=== PATIENT | female | born 2000 | race American Indian/Alaskan Native ===

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

== ENCOUNTER 2020-10-17 11:57 | Emergency (ER) | payer MEDICAID ==
[2020-10-17 12:05] VITALS: BP 148/95
--- NOTE | 2020-10-17 12:17 | Emergency Department Report ---
ED General Adult HPI - General Chief complaint: Extremity Injury, Lower Stated complaint: RT KNEE PAIN Time Seen by Provider: 10/17/20 12:13 Source: patient Mode of arrival: Ambulatory Limitations: No Limitations - History of Present Illness Initial comments: 20-year-old -[place] female patient presents with complaints of right knee pain x1 week. She states the pain occur when she was sitting down to get onto a ride at [employer] last week. She also reports history of a fracture in the same knee in 2019. She denies any numbness/tingling/weakness in her leg, difficulty moving her knee, swelling, redness, or fever/chills/sweats. She rates her current pain as a 7/10 in severity. She denies trying any OTC medication for pain. Pain worsens with ambulation. Patient reports clicking of the knee - Related Data Previous Rx's Medication Instructions Recorded Last Taken Type Azithromycin [Zithromax] 500 mg PO QDAY #3 tablet 02/09/14 Unknown Rx Bromfed Dm 5 ml PO TID #120 ml 02/09/14 Unknown Rx ALBUTEROL Inhaler(NF) [VENTOLIN 1 - 2 puff IH DAILY #1 inha 01/03/19 Unknown Rx Inhaler(NF)] ALBUTEROL NEB's [Proventil 0.083% 2.5 mg IH TID PRN #25 vial 07/25/19 Unknown Rx NEBS] Azithromycin [Zithromax Z-MARY] 250 mg PO DAILY #6 tab 07/25/19 Unknown Rx Benzonatate [Tessalon Perles] 100 mg PO Q8HR PRN #30 capsule 07/25/19 Unknown Rx Ibuprofen [Motrin 800 MG tab] 800 mg PO Q8HR PRN #30 tablet 07/25/19 Unknown Rx Nebulizer Accessories [Sootheneb 1 each MC PRN PRN #1 each 07/25/19 Unknown Rx [id number] Adult Mask] Nebulizer [Aeroneb Go Nebulizer] 1 each MC PRN PRN #1 each 07/25/19 Unknown Rx predniSONE [Deltasone] 40 mg PO QDAY 5 Days #10 tab 07/25/19 Unknown Rx Albuterol Mdi (or & Nicu Only) 2 puff IH QID PRN #1 inhalation 12/28/19 Unknown Rx [ProAir HFA Inhaler] Fluticasone [Flonase] 1 spray NS QDAY #1 bottle 12/28/19 Unknown Rx Loratadine (Nf) [Claritin (Nf)] 10 mg PO DAILY #30 tablet 12/28/19 Unknown Rx guaiFENesin/CODEINE [Robitussin AC] 5 ml PO TID #60 ml 12/28/19 Unknown Rx Naproxen [EC-Naprosyn] 500 mg PO BID PRN 7 Days #14 10/17/20 Unknown Rx tablet. Allergies Allergy/AdvReac Type Severity Reaction Status Date / Time No Known Allergies Allergy Verified 01/03/19 08:54 ED Review of Systems ROS: Stated complaint: RT KNEE PAIN Other details as noted in HPI Constitutional: denies: chills, fever, malaise Genitourinary: denies: dysuria, discharge Musculoskeletal: arthralgia. denies: joint swelling Skin: denies: change in color Neurological: denies: numbness, paresthesias ED Past Medical Hx - Past Medical History Hx Asthma: Yes - Surgical History Past Surgical History?: No - Social History Smoking Status: Never Smoker - Medications Home Medications: Home Medications Medication Instructions Recorded Confirmed Last Taken Type Azithromycin [Zithromax] 500 mg PO QDAY #3 tablet 02/09/14 Unknown Rx Bromfed Dm 5 ml PO TID #120 ml 02/09/14 Unknown Rx ALBUTEROL Inhaler(NF) [VENTOLIN 1 - 2 puff IH DAILY #1 inha 01/03/19 Unknown Rx Inhaler(NF)] ALBUTEROL NEB's [Proventil 0.083% 2.5 mg IH TID PRN #25 vial 07/25/19 Unknown Rx NEBS] Azithromycin [Zithromax Z-MARY] 250 mg PO DAILY #6 tab 07/25/19 Unknown Rx Benzonatate [Tessalon Perles] 100 mg PO Q8HR PRN #30 capsule 07/25/19 Unknown Rx Ibuprofen [Motrin 800 MG tab] 800 mg PO Q8HR PRN #30 tablet 07/25/19 Unknown Rx Nebulizer Accessories [Sootheneb 1 each MC PRN PRN #1 each 07/25/19 Unknown Rx [id number] Adult Mask] Nebulizer [Aeroneb Go Nebulizer] 1 each MC PRN PRN #1 each 07/25/19 Unknown Rx predniSONE [Deltasone] 40 mg PO QDAY 5 Days #10 tab 07/25/19 Unknown Rx Albuterol Mdi (or & Nicu Only) 2 puff IH QID PRN #1 inhalation 12/28/19 Unknown Rx [ProAir HFA Inhaler] Fluticasone [Flonase] 1 spray NS QDAY #1 bottle 12/28/19 Unknown Rx Loratadine (Nf) [Claritin (Nf)] 10 mg PO DAILY #30 tablet 12/28/19 Unknown Rx guaiFENesin/CODEINE [Robitussin AC] 5 ml PO TID #60 ml 12/28/19 Unknown Rx Naproxen [EC-Naprosyn] 500 mg PO BID PRN 7 Days #14 10/17/20 Unknown Rx tablet. ED Physical Exam - General Limitations: No Limitations General appearance: alert, in no apparent distress, obese - Head Head exam: Present: atraumatic, normocephalic - Neck Neck exam: Present: normal inspection - Respiratory Respiratory exam: Absent: respiratory distress - Cardiovascular Cardiovascular Exam: Present: regular rate - Expanded Lower Extremity Exam Right Knee exam: Present: full ROM, tenderness (Anterior and midline). Absent: swelling, abrasion, laceration, ecchymosis, deformity, crepidus Lower Leg exam: Present: normal inspection, full ROM Ankle exam: Present: normal inspection, full ROM Neuro vascular tendon exam: Absent: no vascular compromise - Back Exam Back exam: Present: full ROM - Neurological Exam Neurological exam: Present: alert, oriented X3 - Psychiatric Psychiatric exam: Present: normal affect, normal mood - Skin Skin exam: Present: warm, dry, intact, normal color. Absent: rash, erythema ED Course Vital Signs 10/17/20 12:03 Temperature 97.9 F Pulse Rate 94 H Respiratory 16 Rate Blood Pressure 148/95 O2 Sat by Pulse 98 Oximetry ED Medical Decision Making - Radiology Data Radiology results: report reviewed Procedure(s): XR knee 3V RT Accession Number(s): [id number] cc: ALFONZO SHEARER Fluoro Time In Minutes: EXAMINATION: Right knee radiograph, 3 views, 10/17/2020 CLINICAL INFORMATION: Right knee pain and trauma. Twisting injury. COMPARISON: None. FINDINGS: There is no evidence of acute fracture or subluxation. No focal soft tissue swelling is visualized. No significant bony degenerative changes are noted. IMPRESSION: 1. No evidence of acute bony abnormality of the right knee. - Medical Decision Making 20-year-old -[place] female patient presents with complaints of right knee pain x1 week. She states the pain occur when she was sitting down to get onto a ride at [employer] last week. She also reports history of a fracture in the same knee in 2019. She denies any numbness/tingling/weakness in her leg, difficulty moving her knee, swelling, redness, or fever/chills/sweats. She rates her current pain as a 7/10 in severity. She denies trying any OTC medication for pain. Pain worsens with ambulation. Patient reports clicking of the knee No abnormalities noted on x-ray of knee. Patient placed in Alen wrap and provided with crutches. Will treat with NSAIDs and icing and recommend follow- up with podiatrist orthopedic. Strict return precautions were discussed in detail with patient who verbalizes understanding peer Critical care attestation.: If time is entered above; I have spent that time in minutes in the direct care of this critically ill patient, excluding procedure time. ED Disposition Clinical Impression: Right knee sprain Qualifiers: Encounter type: initial encounter Involved ligament of knee: other ligament Qualified Code(s): S83.8X1A - Sprain of other specified parts of right knee, initial encounter Disposition: TO HOME OR SELFCARE Is pt being admited?: No Condition: Stable Instructions: Knee Sprain, Adult Prescriptions: Naproxen [EC-Naprosyn] 500 mg PO BID PRN 7 Days #14 tablet.dr ORDOÑEZ Reason: pain Referrals: ANGIE INGRAM MD [Staff Physician] - 3-5 Days
--- NOTE | 2020-10-17 12:49 | XRay Report ---
EXAMINATION: Right knee radiograph, 3 views, 10/17/2020 CLINICAL INFORMATION: Right knee pain and trauma. Twisting injury. COMPARISON: None. FINDINGS: There is no evidence of acute fracture or subluxation. No focal soft tissue swelling is vis ualized. No significant bony degenerative changes are noted. IMPRESSION: 1. No evidence of acute bony abnormality of the right knee. Signer Name: Marlen Cornelius MD Signed: 10/17/2020 12:45 PM Workstation Name: [id number]
[2020-10-17] MEDS ORDERED: IBUPROFEN 800 MG TAB PO ONE (13:34)
== END 2020-10-17 13:57 | disposition home or self-care (01) ==
LOC: ED 11:57
DX: S83.91XA Sprain of unspecified site of right knee, initial encounter (principal); J45.909 Unspecified asthma, uncomplicated; Z79.2 Long term (current) use of antibiotics; Z79.899 Other long term (current) drug therapy; X58.XXXA Exposure to other specified factors, initial encounter; Y93.89 Activity, other specified; Y92.89 Other specified places as the place of occurrence of the external cause; Y99.8 Other external cause status
CPT/HCPCS: 99283

== ENCOUNTER 2020-11-03 20:29 | Emergency (ER) | payer MEDICAID ==
--- NOTE | 2020-11-03 20:46 | Emergency Department Report ---
ED Asthma HPI - General Stated Complaint: YONNY PUI?: No Time Seen by Provider: 11/03/20 20:32 Source: patient - History of Present Illness Complaint: shortness of breath, wheezing -: Gradual Asthma History: childhood onset Severity: mild, moderate Context: none known, ran out of meds, other Associated Symptoms: productive cough, other - Related Data Previous Rx's Medication Instructions Recorded Last Taken Type Azithromycin [Zithromax] 500 mg PO QDAY #3 tablet 02/09/14 Unknown Rx Bromfed Dm 5 ml PO TID #120 ml 02/09/14 Unknown Rx ALBUTEROL Inhaler(NF) [VENTOLIN 1 - 2 puff IH DAILY #1 inha 01/03/19 Unknown Rx Inhaler(NF)] ALBUTEROL NEB's [Proventil 0.083% 2.5 mg IH TID PRN #25 vial 07/25/19 Unknown Rx NEBS] Azithromycin [Zithromax Z-MARY] 250 mg PO DAILY #6 tab 07/25/19 Unknown Rx Benzonatate [Tessalon Perles] 100 mg PO Q8HR PRN #30 capsule 07/25/19 Unknown Rx Ibuprofen [Motrin 800 MG tab] 800 mg PO Q8HR PRN #30 tablet 07/25/19 Unknown Rx Nebulizer Accessories [Sootheneb 1 each MC PRN PRN #1 each 07/25/19 Unknown Rx [id number] Adult Mask] Nebulizer [Aeroneb Go Nebulizer] 1 each MC PRN PRN #1 each 07/25/19 Unknown Rx predniSONE [Deltasone] 40 mg PO QDAY 5 Days #10 tab 07/25/19 Unknown Rx Albuterol Mdi (or & Nicu Only) 2 puff IH QID PRN #1 inhalation 12/28/19 Unknown Rx [ProAir HFA Inhaler] Fluticasone [Flonase] 1 spray NS QDAY #1 bottle 12/28/19 Unknown Rx Loratadine (Nf) [Claritin (Nf)] 10 mg PO DAILY #30 tablet 12/28/19 Unknown Rx guaiFENesin/CODEINE [Robitussin AC] 5 ml PO TID #60 ml 12/28/19 Unknown Rx Naproxen [EC-Naprosyn] 500 mg PO BID PRN 7 Days #14 10/17/20 Unknown Rx tablet.dr Albuterol Mdi (or & Nicu Only) 1 puff IH Q4-6H PRN #1 inha 11/03/20 Unknown Rx [ProAir HFA Inhaler] Benzonatate [Tessalon Perles] 100 mg PO Q8HR #20 capsule 11/03/20 Unknown Rx Fluticasone [Flonase] 1 spray NS QDAY #1 bottle 11/03/20 Unknown Rx predniSONE [Deltasone] 20 mg PO QDAY #5 tab 11/03/20 Unknown Rx Allergies Allergy/AdvReac Type Severity Reaction Status Date / Time No Known Allergies Allergy Verified 01/03/19 08:54 ED Review of Systems ROS: Stated complaint: YONNY Other details as noted in HPI Comment: All other systems reviewed and negative ED Past Medical Hx - Past Medical History Hx Asthma: Yes - Social History Smoking Status: Never Smoker - Medications Home Medications: Home Medications Medication Instructions Recorded Confirmed Last Taken Type Azithromycin [Zithromax] 500 mg PO QDAY #3 tablet 02/09/14 Unknown Rx Bromfed Dm 5 ml PO TID #120 ml 02/09/14 Unknown Rx ALBUTEROL Inhaler(NF) [VENTOLIN 1 - 2 puff IH DAILY #1 inha 01/03/19 Unknown Rx Inhaler(NF)] ALBUTEROL NEB's [Proventil 0.083% 2.5 mg IH TID PRN #25 vial 07/25/19 Unknown Rx NEBS] Azithromycin [Zithromax Z-MARY] 250 mg PO DAILY #6 tab 07/25/19 Unknown Rx Benzonatate [Tessalon Perles] 100 mg PO Q8HR PRN #30 capsule 07/25/19 Unknown Rx Ibuprofen [Motrin 800 MG tab] 800 mg PO Q8HR PRN #30 tablet 07/25/19 Unknown Rx Nebulizer Accessories [Sootheneb 1 each MC PRN PRN #1 each 07/25/19 Unknown Rx [id number] Adult Mask] Nebulizer [Aeroneb Go Nebulizer] 1 each MC PRN PRN #1 each 07/25/19 Unknown Rx predniSONE [Deltasone] 40 mg PO QDAY 5 Days #10 tab 07/25/19 Unknown Rx Albuterol Mdi (or & Nicu Only) 2 puff IH QID PRN #1 inhalation 12/28/19 Unknown Rx [ProAir HFA Inhaler] Fluticasone [Flonase] 1 spray NS QDAY #1 bottle 12/28/19 Unknown Rx Loratadine (Nf) [Claritin (Nf)] 10 mg PO DAILY #30 tablet 12/28/19 Unknown Rx guaiFENesin/CODEINE [Robitussin AC] 5 ml PO TID #60 ml 12/28/19 Unknown Rx Naproxen [EC-Naprosyn] 500 mg PO BID PRN 7 Days #14 10/17/20 Unknown Rx tablet. Albuterol i (or & Nicu Only) 1 puff IH Q4-6H PRN #1 inha 11/03/20 Unknown Rx [ProAir HFA Inhaler] Benzonatate [Tessalon Perles] 100 mg PO Q8HR #20 capsule 11/03/20 Unknown Rx Fluticasone [Flonase] 1 spray NS QDAY #1 bottle 11/03/20 Unknown Rx predniSONE [Deltasone] 20 mg PO QDAY #5 tab 11/03/20 Unknown Rx ED Physical Exam - General General appearance: alert, in no apparent distress - Head Head exam: Present: atraumatic, normocephalic - Eye Eye exam: Present: normal appearance, PERRL Pupils: Present: normal accommodation - ENT ENT exam: Present: mucous membranes moist, TM's normal bilaterally, other (nasal congestion with clear discharge) - Neck Neck exam: Present: normal inspection, full ROM - Respiratory Respiratory exam: Present: normal lung sounds bilaterally, rhonchi. Absent: respiratory distress, wheezes, accessory muscle use, decreased breath sounds - Cardiovascular Cardiovascular Exam: Present: regular rate, normal rhythm. Absent: tachycardia, systolic murmur, diastolic murmur, rubs, gallop - GI/Abdominal GI/Abdominal exam: Present: soft, normal bowel sounds. Absent: tenderness, guarding, rebound, hyperactive bowel sounds, hypoactive bowel sounds, organomegaly - Extremities Exam Extremities exam: Present: normal inspection, normal capillary refill - Back Exam Back exam: Present: normal inspection. Absent: CVA tenderness (R), CVA tenderness (L) - Neurological Exam Neurological exam: Present: alert, oriented X3, CN II-XII intact - Psychiatric Psychiatric exam: Present: normal affect, normal mood - Skin Skin exam: Present: warm, dry, intact, normal color. Absent: rash ED Course Vital Signs 11/03/20 11/04/20 22:22 00:05 Temperature 97.0 F L Pulse Rate 78 Respiratory 16 20 Rate Blood Pressure 123/79 O2 Sat by Pulse 98 Oximetry ED Medical Decision Making - Radiology Data Radiology results: report reviewed Referring Physician:CORTNEY CHAPatient Name:GIAN BUTLERPatient ID:[id number] of :[id number]:FemaleAccession:[id number] Date:[id number] Status:Finalized Findings [facility] [address] [place] [address] XRay Report Signed Patient: GIAN BUTLER MR#: [id number] : 2000 Acct:[id number] Age/Sex: 20 / F ADM Date: 11/03/20 Loc: ED Attending Dr: Ordering Physician: JULY HENRY Date of Service: 11/03/20 Procedure(s): XR chest routine 2V Accession Number(s): [id number] cc: JULY HENRY Fluoro Time In Minutes: CHEST 2 VIEWS INDICATION / CLINICAL INFORMATION: Shortness of breath, asthma, wheezing. COMPARISON: 12/28/2019. FINDINGS: SUPPORT DEVICES: None. HEART / MEDIASTINUM: Stable. LUNGS / PLEURA: No significant pulmonary or pleural abnormality. No pneumothorax. ADDITIONAL FINDINGS: No significant additional findings. IMPRESSION: No acute cardiopulmonary abnormality. Signer Name: Brittany Cedillo MD Signed: 11/03/2020 9:37 PM Workstation Name: [id number] Transcribed By: SS Dictated By: BRITTANY CEDILLO Electronically Authenticated By: BRITTANY CEDILLO Signed Date/Time: 11/03/202136 DD/ 36 TD/TT - Medical Decision Making This patient presents with acute cough, most consistent with hyperreactive airway disease. Differential diagnosis includes asthma, bronchitis, hyperreactive airway disease, viral syndrome. Presentation not consistent with acute bacterial pneumonia, influenza, asthma, transient airway hyperresponsiveness. Presentation not consistent with chronic causes of cough (including GERD, asthma, postnasal discharge, medication side effect, CHF, lung cancer or mass). Plan: supportive care, reassess Critical care attestation.: If time is entered above; I have spent that time in minutes in the direct care of this critically ill patient, excluding procedure time. ED Disposition Clinical Impression: Cough, Nasal congestion Disposition: DC-01 TO HOME OR SELFCARE Is pt being admited?: No Does the pt Need Aspirin: No Condition: Stable Instructions: Cool Mist Vaporizer, Cough, Adult, Allergic Rhinitis, Adult Prescriptions: predniSONE [Deltasone] 20 mg PO QDAY #5 tab Fluticasone [Flonase] 1 spray NS QDAY #1 bottle Albuterol Mdi (or & Nicu Only) [ProAir HFA Inhaler] 1 puff IH Q4-6H PRN #1 inha PRN Reason: Cough Benzonatate [Tessalon Perles] 100 mg PO Q8HR #20 capsule Referrals: [facility] [Provider Group] - 3-5 Days
--- NOTE | 2020-11-03 21:42 | XRay Report ---
CHEST 2 VIEWS INDICATION / CLINICAL INFORMATION: Shortness of breath, asthma, wheezing. COMPARISON: 12/28/2019. FINDINGS: SUPPORT DEVICES: None. HEART / MEDIASTINUM: Stable. LUNGS / PLEURA: No significant pulmonary or pleural abnormality. No pneumothorax. ADDITIONAL FINDINGS: No significant additional findings. IMPRESSION: No acute cardiopulmonary abnormality. Signer Name: Jay Cedillo MD Signed: 11/03/2020 9:37 PM Workstation Name: [id number]
[2020-11-04 00:38] VITALS: BP 123/79
== END 2020-11-04 00:10 | disposition home or self-care (01) ==
LOC: ED 20:29
DX: R09.81 Nasal congestion (principal); R05 Cough; J45.909 Unspecified asthma, uncomplicated; Z79.899 Other long term (current) drug therapy
CPT/HCPCS: 71046

== ENCOUNTER 2021-01-01 11:53 | Emergency (ER) | payer SELFPAY ==
[2021-01-01] MEDS ORDERED: IPRATROPIUM/ALBUTEROL SULFATE 3 ML AMPUL.NEB IH ONE (12:20)
[2021-01-01] MEDS ORDERED: dexAMETHasone 4 MG/ML VIAL IM ONE (12:20)
[2021-01-01 12:21] VITALS: BP 122/85
--- NOTE | 2021-01-01 12:57 | XRay Report ---
CHEST 2 VIEWS INDICATION: cough, wheezing. COMPARISON: 11/03/2020 FINDINGS: Support devices: None. Heart: Within normal limits. Lungs/pleura: No acute air space or interstitial disease. No pneumothorax. Additional findings: None. IMPRESSION: Normal chest x-ray Signer Name: Terrance Crews Jr, MD Signed: 01/01/2021 12:53 PM Workstation Name: [id number]
--- NOTE | 2021-01-01 13:17 | Emergency Department Report ---
- General Chief Complaint: Upper Respiratory Infection Stated Complaint: WHEZZING/ALLERGIES Time Seen by Provider: 01/01/21 12:20 Source: patient Mode of arrival: Ambulatory Limitations: No Limitations - History of Present Illness Initial Comments: Patient is a 20-year-old female presents emergency room complaints of an asthma exacerbation that began last night. She has associated wheezing, cough, shortness of breath. She denies any fever, nausea, vomiting, diarrhea, chest pain, leg swelling. She has a history of asthma and has not used her inhaler in over a month. She is a non-smoker and states that she is not around any other smokers. She denies any sick contacts or recent travel. She denies any other past medical history. No allergies to medications. She states that her last menstrual cycle was earlier this month denies possibility of . - Related Data Previous Rx's Medication Instructions Recorded Last Taken Type Azithromycin [Zithromax] 500 mg PO QDAY #3 tablet 02/09/14 Unknown Rx Bromfed Dm 5 ml PO TID #120 ml 02/09/14 Unknown Rx ALBUTEROL Inhaler(NF) [VENTOLIN 1 - 2 puff IH DAILY #1 inha 01/03/19 Unknown Rx Inhaler(NF)] ALBUTEROL NEB's [Proventil 0.083% 2.5 mg IH TID PRN #25 vial 07/25/19 Unknown Rx NEBS] Azithromycin [Zithromax Z-MARY] 250 mg PO DAILY #6 tab 07/25/19 Unknown Rx Benzonatate [Tessalon Perles] 100 mg PO Q8HR PRN #30 capsule 07/25/19 Unknown Rx Ibuprofen [Motrin 800 MG tab] 800 mg PO Q8HR PRN #30 tablet 07/25/19 Unknown Rx Nebulizer Accessories [Sootheneb 1 each MC PRN PRN #1 each 07/25/19 Unknown Rx [id number] Adult Mask] Nebulizer [Aeroneb Go Nebulizer] 1 each MC PRN PRN #1 each 07/25/19 Unknown Rx predniSONE [Deltasone] 40 mg PO QDAY 5 Days #10 tab 07/25/19 Unknown Rx Albuterol Mdi (or & Nicu Only) 2 puff IH QID PRN #1 inhalation 12/28/19 Unknown Rx [ProAir HFA Inhaler] Fluticasone [Flonase] 1 spray NS QDAY #1 bottle 12/28/19 Unknown Rx Loratadine (Nf) [Claritin (Nf)] 10 mg PO DAILY #30 tablet 12/28/19 Unknown Rx guaiFENesin/CODEINE [Robitussin AC] 5 ml PO TID #60 ml 12/28/19 Unknown Rx Naproxen [EC-Naprosyn] 500 mg PO BID PRN 7 Days #14 10/17/20 Unknown Rx tablet. Albuterol Mdi (or & Nicu Only) 1 puff IH Q4-6H PRN #1 inha 11/03/20 Unknown Rx [ProAir HFA Inhaler] Benzonatate [Tessalon Perles] 100 mg PO Q8HR #20 capsule 11/03/20 Unknown Rx Fluticasone [Flonase] 1 spray NS QDAY #1 bottle 11/03/20 Unknown Rx predniSONE [Deltasone] 20 mg PO QDAY #5 tab 11/03/20 Unknown Rx Albuterol Sulfate [Proventil Hfa] 1 inhalation IH Q4HR PRN #1 01/01/21 Unknown Rx hfa.aer.ad Loratadine [Claritin] 10 mg PO DAILY #30 tablet 01/01/21 Unknown Rx Prednisone [predniSONE 10 mg 10 mg PO .TAPER #1 tab.ds.pk 01/01/21 Unknown Rx (6-Day Pack, 21 Tabs)] Allergies Allergy/AdvReac Type Severity Reaction Status Date / Time No Known Allergies Allergy Verified 01/03/19 08:54 ED Review of Systems ROS: Stated complaint: WHEZZING/ALLERGIES Other details as noted in HPI Comment: All other systems reviewed and negative ED Past Medical Hx - Past Medical History Previous Medical History?: Yes Hx Asthma: Yes - Social History Smoking Status: Never Smoker - Medications Home Medications: Home Medications Medication Instructions Recorded Confirmed Last Taken Type Azithromycin [Zithromax] 500 mg PO QDAY #3 tablet 02/09/14 Unknown Rx Bromfed Dm 5 ml PO TID #120 ml 02/09/14 Unknown Rx ALBUTEROL Inhaler(NF) [VENTOLIN 1 - 2 puff IH DAILY #1 inha 01/03/19 Unknown Rx Inhaler(NF)] ALBUTEROL NEB's [Proventil 0.083% 2.5 mg IH TID PRN #25 vial 07/25/19 Unknown Rx NEBS] Azithromycin [Zithromax Z-MARY] 250 mg PO DAILY #6 tab 07/25/19 Unknown Rx Benzonatate [Tessalon Perles] 100 mg PO Q8HR PRN #30 capsule 07/25/19 Unknown Rx Ibuprofen [Motrin 800 MG tab] 800 mg PO Q8HR PRN #30 tablet 07/25/19 Unknown Rx Nebulizer Accessories [Sootheneb 1 each MC PRN PRN #1 each 07/25/19 Unknown Rx [id number] Adult Mask] Nebulizer [Aeroneb Go Nebulizer] 1 each MC PRN PRN #1 each 07/25/19 Unknown Rx predniSONE [Deltasone] 40 mg PO QDAY 5 Days #10 tab 07/25/19 Unknown Rx Albuterol Mdi (or & Nicu Only) 2 puff IH QID PRN #1 inhalation 12/28/19 Unknown Rx [ProAir HFA Inhaler] Fluticasone [Flonase] 1 spray NS QDAY #1 bottle 12/28/19 Unknown Rx Loratadine (Nf) [Claritin (Nf)] 10 mg PO DAILY #30 tablet 12/28/19 Unknown Rx guaiFENesin/CODEINE [Robitussin AC] 5 ml PO TID #60 ml 12/28/19 Unknown Rx Naproxen [EC-Naprosyn] 500 mg PO BID PRN 7 Days #14 10/17/20 Unknown Rx tablet. Albuterol Mdi (or & Nicu Only) 1 puff IH Q4-6H PRN #1 inha 11/03/20 Unknown Rx [ProAir HFA Inhaler] Benzonatate [Tessalon Perles] 100 mg PO Q8HR #20 capsule 11/03/20 Unknown Rx Fluticasone [Flonase] 1 spray NS QDAY #1 bottle 11/03/20 Unknown Rx predniSONE [Deltasone] 20 mg PO QDAY #5 tab 11/03/20 Unknown Rx Albuterol Sulfate [Proventil Hfa] 1 inhalation IH Q4HR PRN #1 01/01/21 Unknown Rx hfa.aer.ad Loratadine [Claritin] 10 mg PO DAILY #30 tablet 01/01/21 Unknown Rx Prednisone [predniSONE 10 mg 10 mg PO .TAPER #1 tab.ds.pk 01/01/21 Unknown Rx (6-Day Pack, 21 Tabs)] ED Physical Exam - General Limitations: No Limitations General appearance: alert, in no apparent distress - Head Head exam: Present: atraumatic, normocephalic - Eye Eye exam: Present: normal appearance - ENT ENT exam: Present: mucous membranes moist - Respiratory Respiratory exam: Present: wheezes (expiratory wheezing bilaterally), prolonged expiratory. Absent: respiratory distress, rales, rhonchi, stridor, chest wall tenderness, accessory muscle use, decreased breath sounds - Cardiovascular Cardiovascular Exam: Present: regular rate, normal rhythm, normal heart sounds. Absent: systolic murmur, diastolic murmur, rubs, gallop - Neurological Exam Neurological exam: Present: alert, oriented X3 - Psychiatric Psychiatric exam: Present: normal affect, normal mood - Skin Skin exam: Present: warm, dry, intact ED Course Vital Signs 01/01/21 01/01/21 01/01/21 12:20 12:23 12:43 Temperature 98.3 F Pulse Rate 103 H Pulse Rate [ 100 H Anterior Bilateral Throughout] Respiratory 16 Rate Respiratory 20 Rate [Anterior Bilateral Throughout] Blood Pressure 122/85 [Right] O2 Sat by Pulse 97 Oximetry ED Medical Decision Making - Lab Data Vital Signs 01/01/21 01/01/21 01/01/21 12:20 12:23 12:43 Temperature 98.3 F Pulse Rate 103 H Pulse Rate [ 100 H Anterior Bilateral Throughout] Respiratory 16 Rate Respiratory 20 Rate [Anterior Bilateral Throughout] Blood Pressure 122/85 [Right] O2 Sat by Pulse 97 Oximetry - Radiology Data Radiology results: report reviewed Ordering Physician: JULY LAM Date of Service: 01/01/21 Procedure(s): XR chest routine 2V Accession Number(s): [id number] cc: JULY LAM Fluoro Time In Minutes: CHEST 2 VIEWS INDICATION: cough, wheezing. COMPARISON: 11/03/2020 FINDINGS: Support devices: None. Heart: Within normal limits. Lungs/pleura: No acute air space or interstitial disease. No pneumothorax. Additional findings: None. IMPRESSION: Normal chest x-ray Signer Name: Terrance Crews Jr, MD Signed: 01/01/2021 12:53 PM Workstation Name: [id number] Transcribed By: TTR Dictated By: TERRANCE CREWS JR, MD Electronically Authenticated By: TERRANCE CREWS JR, MD Signed Date/Time: 01/01/211252 DD/ 51 TD/TT: - Medical Decision Making Patient is a 20-year-old female presents emergency room complaints of an asthma exacerbation that began last night. She has associated wheezing, cough, shortness of breath. She denies any fever, nausea, vomiting, diarrhea, chest pain, leg swelling. She has a history of asthma and has not used her inhaler in over a month. She is a non-smoker and states that she is not around any other smokers. She denies any sick contacts or recent travel. She denies any other past medical history. No allergies to medications. She states that her last menstrual cycle was earlier this month denies possibility of . Vitals are stable. On exam patient has expiratory wheezing bilaterally and prolonged expiratory phase. Chest x-ray: Normal chest x-ray. No clinical signs of bacterial pneumonia or bacterial bronchitis. Patient given DuoNeb while in the emergency department. Ordered for patient to have dexamethasone IM and she politely declined, she states that she prefers to take prednisone taper at home. After DuoNeb, patient states that she feels much better, wheezing has improved. Patient given prescription for prednisone, Claritin, albuterol inhaler. Advised patient Please take medication as prescribed. Please follow- up with your primary care doctor. Return to emergency room for any new or worsening symptoms. Critical care attestation.: If time is entered above; I have spent that time in minutes in the direct care of this critically ill patient, excluding procedure time. ED Disposition Clinical Impression: Asthma exacerbation Qualifiers: Asthma severity: unspecified severity Asthma persistence: unspecified Qualified Code(s): J45.901 - Unspecified asthma with (acute) exacerbation Disposition: DC-01 TO HOME OR SELFCARE Is pt being admited?: No Does the pt Need Aspirin: No Condition: Stable Instructions: Asthma, Adult Additional Instructions: Please take medication as prescribed. Please follow-up with your primary care doctor. Return to emergency room for any new or worsening symptoms. Prescriptions: Loratadine [Claritin] 10 mg PO DAILY #30 tablet Prednisone [predniSONE 10 mg (6-Day Pack, 21 Tabs)] 10 mg PO .TAPER #1 tab.ds.pk Albuterol Sulfate [Proventil Hfa] 1 inhalation IH Q4HR PRN #1 hfa.aer.ad PRN Reason: shortness of breath/wheezing Referrals: PRIMARY CAREMD [Primary Care Provider] - 2-3 Days CATHERINE MCPHERSON MD [Staff Physician] - 2-3 Days [facility] [Provider Group] - 2-3 Days Forms: Work/School Release Form(ED) Time of Disposition: 13:14 Print Language: GERMAN
== END 2021-01-01 13:22 | disposition home or self-care (01) ==
LOC: ED 11:53
DX: J45.901 Unspecified asthma with (acute) exacerbation (principal); Z79.899 Other long term (current) drug therapy
CPT/HCPCS: 71046; 94640; 94644; 99283

== ENCOUNTER 2021-01-12 21:30 | Emergency (ER) | payer SELFPAY ==
[2021-01-12 21:49] VITALS: BP 146/96
[2021-01-12] MEDS ORDERED: IPRATROPIUM/ALBUTEROL SULFATE 3 ML AMPUL.NEB IH ONE (21:50)
[2021-01-12] MEDS ORDERED: dexAMETHasone 20 MG/5 ML VIAL IV ONE (21:50)
--- NOTE | 2021-01-12 22:17 | Emergency Department Report ---
ED Asthma HPI - General Chief Complaint: Dyspnea/Respdistress Stated Complaint: SOB PUI?: No Source: patient Mode of arrival: Ambulatory Limitations: No Limitations - History of Present Illness Initial Comments: 20-year-old morbid obesity -[place] female presents to the emergency room complaining of shortness of breath for the last 2 days. Patient states that she is ran out of her inhaler. Patient denies any fever chills or nausea no vomiting no chest pain. States she has a history of asthma. Onset/Timin -: days(s) Severity: moderate, similar to prior Context: ran out of meds Associated Symptoms: productive cough. denies: fever, chest pain, hemoptysis, leg edema Treatments Prior to Arrival: inhaled bronchodilator - Related Data Current Asthma Therapy: inhaled bronchodilator Previous Rx's Medication Instructions Recorded Last Taken Type Azithromycin [Zithromax] 500 mg PO QDAY #3 tablet 02/09/14 Unknown Rx Bromfed Dm 5 ml PO TID #120 ml 02/09/14 Unknown Rx ALBUTEROL Inhaler(NF) [VENTOLIN 1 - 2 puff IH DAILY #1 inha 01/03/19 Unknown Rx Inhaler(NF)] ALBUTEROL NEB's [Proventil 0.083% 2.5 mg IH TID PRN #25 vial 07/25/19 Unknown Rx NEBS] Azithromycin [Zithromax Z-MARY] 250 mg PO DAILY #6 tab 07/25/19 Unknown Rx Benzonatate [Tessalon Perles] 100 mg PO Q8HR PRN #30 capsule 07/25/19 Unknown Rx Ibuprofen [Motrin 800 MG tab] 800 mg PO Q8HR PRN #30 tablet 07/25/19 Unknown Rx Nebulizer Accessories [Sootheneb 1 each MC PRN PRN #1 each 07/25/19 Unknown Rx [id number] Adult Mask] Nebulizer [Aeroneb Go Nebulizer] 1 each MC PRN PRN #1 each 07/25/19 Unknown Rx predniSONE [Deltasone] 40 mg PO QDAY 5 Days #10 tab 07/25/19 Unknown Rx Albuterol Mdi (or & Nicu Only) 2 puff IH QID PRN #1 inhalation 12/28/19 Unknown Rx [ProAir HFA Inhaler] Fluticasone [Flonase] 1 spray NS QDAY #1 bottle 12/28/19 Unknown Rx Loratadine (Nf) [Claritin (Nf)] 10 mg PO DAILY #30 tablet 12/28/19 Unknown Rx guaiFENesin/CODEINE [Robitussin AC] 5 ml PO TID #60 ml 12/28/19 Unknown Rx Naproxen [EC-Naprosyn] 500 mg PO BID PRN 7 Days #14 10/17/20 Unknown Rx tablet. Albuterol Mdi (or & Nicu Only) 1 puff IH Q4-6H PRN #1 inha 11/03/20 Unknown Rx [ProAir HFA Inhaler] Benzonatate [Tessalon Perles] 100 mg PO Q8HR #20 capsule 11/03/20 Unknown Rx Fluticasone [Flonase] 1 spray NS QDAY #1 bottle 11/03/20 Unknown Rx predniSONE [Deltasone] 20 mg PO QDAY #5 tab 11/03/20 Unknown Rx Albuterol Sulfate [Proventil Hfa] 1 inhalation IH Q4HR PRN #1 01/01/21 Unknown Rx hfa.aer.ad Loratadine [Claritin] 10 mg PO DAILY #30 tablet 01/01/21 Unknown Rx Prednisone [predniSONE 10 mg 10 mg PO .TAPER #1 tab.ds.pk 01/01/21 Unknown Rx (6-Day Pack, 21 Tabs)] Albuterol Sulfate [Proventil Hfa] 6.7 gm IH QID 1 Days #1 hfa.aer.ad 01/12/21 Unknown Rx Prednisone [predniSONE 10 mg 10 mg PO .TAPER #1 tab.ds.pk 01/12/21 Unknown Rx (6-Day Pack, 21 Tabs)] Allergies Allergy/AdvReac Type Severity Reaction Status Date / Time No Known Allergies Allergy Verified 01/03/19 08:54 ED Review of Systems ROS: Stated complaint: SOB Other details as noted in HPI Comment: All other systems reviewed and negative ED Past Medical Hx - Past Medical History Hx Asthma: Yes - Social History Smoking Status: Never Smoker - Medications Home Medications: Home Medications Medication Instructions Recorded Confirmed Last Taken Type Azithromycin [Zithromax] 500 mg PO QDAY #3 tablet 02/09/14 Unknown Rx Bromfed Dm 5 ml PO TID #120 ml 02/09/14 Unknown Rx ALBUTEROL Inhaler(NF) [VENTOLIN 1 - 2 puff IH DAILY #1 inha 01/03/19 Unknown Rx Inhaler(NF)] ALBUTEROL NEB's [Proventil 0.083% 2.5 mg IH TID PRN #25 vial 07/25/19 Unknown Rx NEBS] Azithromycin [Zithromax Z-MARY] 250 mg PO DAILY #6 tab 07/25/19 Unknown Rx Benzonatate [Tessalon Perles] 100 mg PO Q8HR PRN #30 capsule 07/25/19 Unknown Rx Ibuprofen [Motrin 800 MG tab] 800 mg PO Q8HR PRN #30 tablet 07/25/19 Unknown Rx Nebulizer Accessories [Sootheneb 1 each MC PRN PRN #1 each 07/25/19 Unknown Rx [id number] Adult Mask] Nebulizer [Aeroneb Go Nebulizer] 1 each MC PRN PRN #1 each 07/25/19 Unknown Rx predniSONE [Deltasone] 40 mg PO QDAY 5 Days #10 tab 07/25/19 Unknown Rx Albuterol Mdi (or & Nicu Only) 2 puff IH QID PRN #1 inhalation 12/28/19 Unknown Rx [ProAir HFA Inhaler] Fluticasone [Flonase] 1 spray NS QDAY #1 bottle 12/28/19 Unknown Rx Loratadine (Nf) [Claritin (Nf)] 10 mg PO DAILY #30 tablet 12/28/19 Unknown Rx guaiFENesin/CODEINE [Robitussin AC] 5 ml PO TID #60 ml 12/28/19 Unknown Rx Naproxen [EC-Naprosyn] 500 mg PO BID PRN 7 Days #14 10/17/20 Unknown Rx tablet. Albuterol Mdi (or & Nicu Only) 1 puff IH Q4-6H PRN #1 inha 11/03/20 Unknown Rx [ProAir HFA Inhaler] Benzonatate [Tessalon Perles] 100 mg PO Q8HR #20 capsule 11/03/20 Unknown Rx Fluticasone [Flonase] 1 spray NS QDAY #1 bottle 11/03/20 Unknown Rx predniSONE [Deltasone] 20 mg PO QDAY #5 tab 11/03/20 Unknown Rx Albuterol Sulfate [Proventil Hfa] 1 inhalation IH Q4HR PRN #1 01/01/21 Unknown Rx hfa.aer.ad Loratadine [Claritin] 10 mg PO DAILY #30 tablet 01/01/21 Unknown Rx Prednisone [predniSONE 10 mg 10 mg PO .TAPER #1 tab.ds.pk 01/01/21 Unknown Rx (6-Day Pack, 21 Tabs)] Albuterol Sulfate [Proventil Hfa] 6.7 gm IH QID 1 Days #1 hfa.aer.ad 01/12/21 Unknown Rx Prednisone [predniSONE 10 mg 10 mg PO .TAPER #1 tab.ds.pk 01/12/21 Unknown Rx (6-Day Pack, 21 Tabs)] ED Physical Exam - General Limitations: No Limitations General appearance: alert, in no apparent distress - Head Head exam: Present: atraumatic, normocephalic - Eye Eye exam: Present: normal appearance - ENT ENT exam: Present: mucous membranes moist - Neck Neck exam: Present: normal inspection, full ROM. Absent: lymphadenopathy - Respiratory Respiratory exam: Present: wheezes, prolonged expiratory - Cardiovascular Cardiovascular Exam: Present: tachycardia - GI/Abdominal GI/Abdominal exam: Present: soft, normal bowel sounds - Back Exam Back exam: Present: normal inspection - Neurological Exam Neurological exam: Present: alert, oriented X3, normal gait - Psychiatric Psychiatric exam: Present: normal affect, normal mood - Skin Skin exam: Present: warm, dry, intact, normal color. Absent: rash ED Course Vital Signs 01/12/21 01/12/21 21:44 21:49 Temperature 98.4 F Pulse Rate 105 H Respiratory 20 Rate Blood Pressure 146/96 [Right] O2 Sat by Pulse 99 Oximetry ED Medical Decision Making - Medical Decision Making 20-year-old morbid obesity -[place] female presents to the emergency room complaining of shortness of breath for the last 2 days. Patient states that she is ran out of her inhaler. Patient denies any fever chills or nausea no vomiting no chest pain. States she has a history of asthma. Patient was given DuoNeb and dexamethasone IM. Patient states she feels much better after having breathing treatment will discharge patient on a prednisone pack and albuterol inhaler. Patient be referred to community provider. Critical care attestation.: If time is entered above; I have spent that time in minutes in the direct care of this critically ill patient, excluding procedure time. ED Disposition Clinical Impression: Asthma exacerbation Disposition: DC- TO HOME OR SELFCARE Is pt being admited?: No Does the pt Need Aspirin: No Condition: Stable Instructions: Asthma, Adult, [id number] Additional Instructions: Please use inhaler in complete your prednisone as prescribed. Follow-up with your primary care provider. Prescriptions: Prednisone [predniSONE 10 mg (6-Day Pack, 21 Tabs)] 10 mg PO .TAPER #1 tab.ds.pk Albuterol Sulfate [Proventil Hfa] 6.7 gm IH QID 1 Days #1 hfa.aer.ad Referrals: [facility] [Provider Group] - 3-5 Days Forms: Work/School Release Form(ED)
== END 2021-01-12 23:38 | disposition home or self-care (01) ==
LOC: ED 21:30
DX: J45.901 Unspecified asthma with (acute) exacerbation (principal); Z79.899 Other long term (current) drug therapy
CPT/HCPCS: 94640; 99282; J1100; 94644

== ENCOUNTER 2021-02-20 11:09 | Emergency (ER) | payer SELFPAY ==
[2021-02-20] MEDS ORDERED: IPRATROPIUM 0.02% NEBU 2.5 ML IH ONE ×2 (11:27→11:28)
[2021-02-20] MEDS ORDERED: dexAMETHasone 20 MG/5 ML VIAL IM ONE (11:27)
[2021-02-20] MEDS ORDERED: ALBUTEROL 2.5 MG/3 ML NEBU IH ONE ×2 (11:27→11:28)
--- NOTE | 2021-02-20 11:29 | Event Note ---
ED Screening Note ED Screening Note: Asthma exacerbation that began last night She uses albuterol inhaler She does not have a nebulizer machine States that she has a productive cough with mucus production Wheezing on exam This initial assessment/diagnostic orders/clinical plan/treatment(s) is/are subject to change based on patients health status, clinical progression and re- assessment by fellow clinical providers in the ED. Further treatment and workup at subsequent clinical providers discretion. Patient/guardian urged not to elope from the ED as their condition may be serious if not clinically assessed and managed. Initial orders include: X-ray, neb treatment, steroids
[2021-02-20] MEDS ORDERED: methylPREDNISolone Sod Succinate 125 MG/2 ML INJ IV ONE (11:39)
[2021-02-20] MEDS ORDERED: MAGNESIUM SULFATE 2 GM/50 ML BAG IV ONE (11:39)
--- NOTE | 2021-02-20 11:42 | Emergency Department Report ---
ED Shortness of Breath HPI - General Chief Complaint: Adult Asthma Stated Complaint: ASTHMA VOMITING Time Seen by Provider: 02/20/21 11:27 Source: patient Mode of arrival: Ambulatory Limitations: No Limitations - History of Present Illness Initial Comments: 20-year-old female, history of asthma, presents to ED with shortness of breath. Patient reports symptoms began last night. She reports associated cough no fever. Patient states she ran out of her inhaler. She denies any known contact with anyone who is tested positive for COVID-19. Patient has not received a COVID-19 vaccine. Complaint: shortness of breath, "asthma attack" -: Last night Severity: moderate Consistency: constant Improves With: nothing Worsens With: nothing, exertion Known History Of: asthma Treatments Prior to Arrival: none - Related Data Home Oxygen Therapy: No Previous Rx's Medication Instructions Recorded Last Taken Type Azithromycin [Zithromax] 500 mg PO QDAY #3 tablet 02/09/14 Unknown Rx Bromfed Dm 5 ml PO TID #120 ml 02/09/14 Unknown Rx ALBUTEROL Inhaler(NF) [VENTOLIN 1 - 2 puff IH DAILY #1 inha 01/03/19 Unknown Rx Inhaler(NF)] ALBUTEROL NEB's [Proventil 0.083% 2.5 mg IH TID PRN #25 vial 07/25/19 Unknown Rx NEBS] Azithromycin [Zithromax Z-MARY] 250 mg PO DAILY #6 tab 07/25/19 Unknown Rx Benzonatate [Tessalon Perles] 100 mg PO Q8HR PRN #30 capsule 07/25/19 Unknown Rx Ibuprofen [Motrin 800 MG tab] 800 mg PO Q8HR PRN #30 tablet 07/25/19 Unknown Rx Nebulizer Accessories [Sootheneb 1 each MC PRN PRN #1 each 07/25/19 Unknown Rx [id number] Adult Mask] Nebulizer [Aeroneb Go Nebulizer] 1 each MC PRN PRN #1 each 07/25/19 Unknown Rx predniSONE [Deltasone] 40 mg PO QDAY 5 Days #10 tab 07/25/19 Unknown Rx Albuterol Mdi (or & Nicu Only) 2 puff IH QID PRN #1 inhalation 12/28/19 Unknown Rx [ProAir HFA Inhaler] Fluticasone [Flonase] 1 spray NS QDAY #1 bottle 12/28/19 Unknown Rx Loratadine (Nf) [Claritin (Nf)] 10 mg PO DAILY #30 tablet 12/28/19 Unknown Rx guaiFENesin/CODEINE [Robitussin AC] 5 ml PO TID #60 ml 12/28/19 Unknown Rx Naproxen [EC-Naprosyn] 500 mg PO BID PRN 7 Days #14 10/17/20 Unknown Rx tablet. Albuterol Mdi (or & Nicu Only) 1 puff IH Q4-6H PRN #1 inha 11/03/20 Unknown Rx [ProAir HFA Inhaler] Benzonatate [Tessalon Perles] 100 mg PO Q8HR #20 capsule 11/03/20 Unknown Rx Fluticasone [Flonase] 1 spray NS QDAY #1 bottle 11/03/20 Unknown Rx predniSONE [Deltasone] 20 mg PO QDAY #5 tab 11/03/20 Unknown Rx Albuterol Sulfate [Proventil Hfa] 1 inhalation IH Q4HR PRN #1 01/01/21 Unknown Rx hfa.aer.ad Loratadine [Claritin] 10 mg PO DAILY #30 tablet 01/01/21 Unknown Rx Prednisone [predniSONE 10 mg 10 mg PO .TAPER #1 tab.ds.pk 01/01/21 Unknown Rx (6-Day Pack, 21 Tabs)] Albuterol Sulfate [Proventil Hfa] 6.7 gm IH QID 1 Days #1 hfa.aer.ad 01/12/21 Unknown Rx Prednisone [predniSONE 10 mg 10 mg PO .TAPER #1 tab.ds.pk 01/12/21 Unknown Rx (6-Day Pack, 21 Tabs)] Albuterol Sulfate [Proventil Hfa] 2 puff IH Q4HR PRN #1 hfa.aer.ad 02/20/21 Unknown Rx predniSONE [Deltasone] 50 mg PO QDAY #5 tab 02/20/21 Unknown Rx Allergies Allergy/AdvReac Type Severity Reaction Status Date / Time No Known Allergies Allergy Verified 01/03/19 08:54 ED Review of Systems ROS: Stated complaint: ASTHMA VOMITING Other details as noted in HPI Comment: All other systems reviewed and negative Constitutional: denies: chills, fever Respiratory: cough, shortness of breath, wheezing Cardiovascular: denies: chest pain ED Past Medical Hx - Past Medical History Hx Asthma: Yes - Surgical History Past Surgical History?: No - Social History Smoking Status: Never Smoker - Medications Home Medications: Home Medications Medication Instructions Recorded Confirmed Last Taken Type Azithromycin [Zithromax] 500 mg PO QDAY #3 tablet 02/09/14 Unknown Rx Bromfed Dm 5 ml PO TID #120 ml 02/09/14 Unknown Rx ALBUTEROL Inhaler(NF) [VENTOLIN 1 - 2 puff IH DAILY #1 inha 01/03/19 Unknown Rx Inhaler(NF)] ALBUTEROL NEB's [Proventil 0.083% 2.5 mg IH TID PRN #25 vial 07/25/19 Unknown Rx NEBS] Azithromycin [Zithromax Z-MARY] 250 mg PO DAILY #6 tab 07/25/19 Unknown Rx Benzonatate [Tessalon Perles] 100 mg PO Q8HR PRN #30 capsule 07/25/19 Unknown Rx Ibuprofen [Motrin 800 MG tab] 800 mg PO Q8HR PRN #30 tablet 07/25/19 Unknown Rx Nebulizer Accessories [Sootheneb 1 each MC PRN PRN #1 each 07/25/19 Unknown Rx [id number] Adult Mask] Nebulizer [Aeroneb Go Nebulizer] 1 each MC PRN PRN #1 each 07/25/19 Unknown Rx predniSONE [Deltasone] 40 mg PO QDAY 5 Days #10 tab 07/25/19 Unknown Rx Albuterol Mdi (or & Nicu Only) 2 puff IH QID PRN #1 inhalation 12/28/19 Unknown Rx [ProAir HFA Inhaler] Fluticasone [Flonase] 1 spray NS QDAY #1 bottle 12/28/19 Unknown Rx Loratadine (Nf) [Claritin (Nf)] 10 mg PO DAILY #30 tablet 12/28/19 Unknown Rx guaiFENesin/CODEINE [Robitussin AC] 5 ml PO TID #60 ml 12/28/19 Unknown Rx Naproxen [EC-Naprosyn] 500 mg PO BID PRN 7 Days #14 10/17/20 Unknown Rx tablet. Albuterol Mdi (or & Nicu Only) 1 puff IH Q4-6H PRN #1 inha 11/03/20 Unknown Rx [ProAir HFA Inhaler] Benzonatate [Tessalon Perles] 100 mg PO Q8HR #20 capsule 11/03/20 Unknown Rx Fluticasone [Flonase] 1 spray NS QDAY #1 bottle 11/03/20 Unknown Rx predniSONE [Deltasone] 20 mg PO QDAY #5 tab 11/03/20 Unknown Rx Albuterol Sulfate [Proventil Hfa] 1 inhalation IH Q4HR PRN #1 01/01/21 Unknown Rx hfa.aer.ad Loratadine [Claritin] 10 mg PO DAILY #30 tablet 01/01/21 Unknown Rx Prednisone [predniSONE 10 mg 10 mg PO .TAPER #1 tab.ds.pk 01/01/21 Unknown Rx (6-Day Pack, 21 Tabs)] Albuterol Sulfate [Proventil Hfa] 6.7 gm IH QID 1 Days #1 hfa.aer.ad 01/12/21 Unknown Rx Prednisone [predniSONE 10 mg 10 mg PO .TAPER #1 tab.ds.pk 01/12/21 Unknown Rx (6-Day Pack, 21 Tabs)] Albuterol Sulfate [Proventil Hfa] 2 puff IH Q4HR PRN #1 hfa.aer.ad 02/20/21 Unknown Rx predniSONE [Deltasone] 50 mg PO QDAY #5 tab 02/20/21 Unknown Rx ED Physical Exam - General Limitations: No Limitations General appearance: alert, in no apparent distress - Head Head exam: Present: atraumatic, normocephalic - Eye Eye exam: Present: normal appearance, EOMI - ENT ENT exam: Present: mucous membranes moist - Neck Neck exam: Present: normal inspection - Respiratory Respiratory exam: Present: respiratory distress, wheezes - Cardiovascular Cardiovascular Exam: Present: normal rhythm, tachycardia - GI/Abdominal GI/Abdominal exam: Present: soft. Absent: distended, tenderness - Extremities Exam Extremities exam: Present: normal inspection - Neurological Exam Neurological exam: Present: alert, oriented X3 - Psychiatric Psychiatric exam: Present: normal affect, normal mood - Skin Skin exam: Present: warm, dry, intact, normal color ED Course Vital Signs 02/20/21 02/20/21 02/20/21 11:24 11:57 12:00 Temperature 98.5 F Pulse Rate 119 H 121 H 127 H Pulse Rate [ Anterior Bilateral Throughout] Respiratory 19 23 24 Rate Respiratory Rate [Anterior Bilateral Throughout] Blood Pressure 135/103 138/79 O2 Sat by Pulse 91 94 Oximetry 02/20/21 02/20/21 02/20/21 12:12 12:15 12:31 Temperature Pulse Rate 103 H 109 H Pulse Rate [ 116 H Anterior Bilateral Throughout] Respiratory 18 13 Rate Respiratory 20 Rate [Anterior Bilateral Throughout] Blood Pressure 117/67 123/81 O2 Sat by Pulse 100 100 Oximetry 02/20/21 02/20/21 02/20/21 12:45 13:01 13:15 Temperature Pulse Rate 108 H 120 H 112 H Pulse Rate [ Anterior Bilateral Throughout] Respiratory 15 25 H 22 Rate Respiratory Rate [Anterior Bilateral Throughout] Blood Pressure 113/69 124/73 112/72 O2 Sat by Pulse 100 100 97 Oximetry 02/20/21 02/20/21 02/20/21 13:31 13:45 14:01 Temperature Pulse Rate 119 H 118 H 107 H Pulse Rate [ Anterior Bilateral Throughout] Respiratory 18 17 19 Rate Respiratory Rate [Anterior Bilateral Throughout] Blood Pressure 127/70 130/64 125/65 O2 Sat by Pulse 94 94 95 Oximetry 02/20/21 02/20/21 14:15 14:31 Temperature Pulse Rate 102 H 118 H Pulse Rate [ Anterior Bilateral Throughout] Respiratory 16 14 Rate Respiratory Rate [Anterior Bilateral Throughout] Blood Pressure 125/59 115/43 O2 Sat by Pulse 96 96 Oximetry ED Medical Decision Making - Radiology Data Radiology results: report reviewed, image reviewed - Medical Decision Making 20-year-old female presents to ED with acute asthma exacerbation. Upon presentation, O2 sats 91% on room, patient wheezing and in respiratory distress. 1 hour nebulizer treatment was given along with steroids and mag sulfate. Patient prefer p.o. prednisone instead of IV Solu-Medrol. Following treatment wheezing greatly improved. O2 sats are now normal. Patient is feeling much better at this time and feels ready for discharge home. Prescriptions given, outpatient follow-up advised. Return precautions given. - Differential Diagnosis Asthma, pneumonia Critical care attestation.: If time is entered above; I have spent that time in minutes in the direct care of this critically ill patient, excluding procedure time. ED Disposition Clinical Impression: Acute asthma exacerbation Disposition: DC-01 TO HOME OR SELFCARE Is pt being admited?: No Condition: Stable Instructions: Asthma, Adult, [id number] Prescriptions: predniSONE [Deltasone] 50 mg PO QDAY #5 tab Albuterol Sulfate [Proventil Hfa] 2 puff IH Q4HR PRN #1 hfa.aer.ad PRN Reason: Wheezing Referrals: PRIMARY CARE, [Primary Care Provider] - 3-5 Days [facility] [Provider Group] - 3-5 Days Forms: Work/School Release Form(ED) Time of Disposition: 13:26
[2021-02-20] MEDS ORDERED: predniSONE 20 MG TAB PO ONE (11:51)
--- NOTE | 2021-02-20 12:03 | XRay Report ---
CHEST 1 VIEW 02/20/2021 11:29 AM INDICATION / CLINICAL INFORMATION: cough with mucus production, wheezing, SOB. COMPARISON: 01/01/2021 FINDINGS: SUPPORT DEVICES: None. HEART / MEDIASTINUM: Stable. LUNGS / PLEURA: No confluent infiltrates or pleural effusions. No pneumothorax. ADDITIONAL FINDINGS: No significant additional findings. IMPRESSION: 1. No acute findings. No significant interval change since 01/01/2021 Signer Name: Jose F Carbajal MD Signed: 02/20/2021 11:58 AM Workstation Name: [id number]
[2021-02-20 15:02] VITALS: BP 115/43
== END 2021-02-20 15:02 | disposition home or self-care (01) ==
LOC: ED 11:09
DX: J45.901 Unspecified asthma with (acute) exacerbation (principal); Z79.899 Other long term (current) drug therapy
CPT/HCPCS: 71045; 94640; 96365; 99283; J3475; J7512; 94644